=== PATIENT | male | born 1985 | race Caucasian/White ===

== ENCOUNTER 2022-01-10 23:03 | Emergency (ER) | payer OTHER, SELFPAY ==
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
[2022-01-10 23:40] VITALS: BP 136/84; BP 162/101; PULSE 71; PULSE 85; RESP 16; RESP 18; TEMP 36.2; O2SAT 100; BMI 22.2
--- OUTSIDE RECORDS SUMMARY | 2022-01-10 23:56 | XMS_ITS | Encounter Summary ---
:1985 Author Organization [facility] Address [address] [place] [address] Care Team Providers Name Role Phone Wilbur Eden MD Primary Care Provider Encounter Details Date Type Department Care Team Description 12/25/2007 [facility] Wilbur Eden Need for Prophylactic Health/Nurse Physicians MD [place] Vaccination with Visit [address] XXX RETIRED XXX Tetanus-Diphtheria [address]) (Primary Dx) [place], [place] [address] [address] [place], [place] [phone] Social History Tobacco Use Types Packs/Day Years Used Date Never Smoker Alcohol Use Standard Drinks/Week Comments No 0 (1 standard drink = 0.6 oz pure alcoho l) Sex Assigned at Date Recorded Not on file documented as of this encounter Nursing Notes 12/25/2007 11:30 AM CDT >> ÓSCAR Hilliard Dec 25, 2007 11:52 AM Vaccine information supplied. documented in this encounter Plan of Treatment Not on filedocumented as of this encounter Visit Diagnoses Diagnosis Need for prophylactic vaccination with t etanus-diphtheria (Td) - Primary documented in this encounter Care Teams Photoengraving Finisher Relationship Specialty Start Date End Date Wilbur Eden MD PCP - General 07/20/05 02/11/18 documented as of this encounter
--- OUTSIDE RECORDS SUMMARY | 2022-01-10 23:56 | XMS_ITS | Encounter Summary ---
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 documented as of this encounter Plan of Treatment Not on filedocumented as of this encounter Visit Diagnoses Not on filedocumented in this encounter Care Teams Regional Merchandising Manager Relationship Specialty Start Date End Date [facility] PCP - General 03/30/201999 [place] [address] documented as of this encounter
--- OUTSIDE RECORDS SUMMARY | 2022-01-10 23:56 | XMS_ITS | Encounter Summary ---
:1985 Author Organization [facility] Address [address] [place] [address] Care Team Providers Name Role Phone Wilbur Eden MD Primary Care Provider Reason for Visit Reason Comments Pharyngitis Encounter Details Date Type Department Care Team Description 07/20/2005 Office Visit [facility] Wilbur Eden ACUTE PHA RYNGITIS Physicians MD [place] (Primary Dx) [address] XXX RETIRED XXX [address] [place], [place] [address] [place], [place] [phone] (Wo rk) Social History Tobacco Use Types Packs/Day Years Used Date Never Smoker Alcohol Use Standard Drinks/Week Comments No 0 (1 standard drink = 0.6 oz pure alcoho l) Sex Assigned at Date Recorded Not on file documented as of this encounter Last Filed Vital Signs Vital Sign Reading Time Taken Comments Blood Pressure 110/68 07/20/2005 1:15 PM MASTER TAX ADVISOR Pulse 72 07/20/2005 1:15 PM MASTER TAX ADVISOR Temperature 36.8 ??C (98.3 ??F) 07/20/2005 1:15 PM MASTER TAX ADVISOR Respiratory Rate 12 07/20/2005 1:15 PM MASTER TAX ADVISOR Oxygen Saturation - - Inhaled Oxygen Concentration - - Weight 61.7 kg (136 lb) 07/20/2005 1:15 PM MASTER TAX ADVISOR Height 172.7 cm (5' 8) 07/20/2005 1:15 PM MASTER TAX ADVISOR Body Mass Index 20.68 07/20/2005 1:15 PM MASTER TAX ADVISOR documented in this encounter Progress Notes Wilbur Eden 07/20/2005 1:33 PM CST SUBJECTIVE: Abhijeet Moses is an 19 year old male who presents for evaluation and treatment of sore throat. Symptoms include congestion, sore throat, swollen glands, fever and cough. Onset 4 days, gradually worsening since that time. Known Strep exposure: none. No current outpatient prescriptions on file. No Known Allergies. History Substance Use Topics ??? Tobacco Use: Never ??? Alcohol Use: No OBJECTIVE: BP 110/68 Pulse 72 Temp (Src) 98.3 (Oral) Resp 12 Ht 5' 8 (1.73m) Wt 136 lbs (61.7kg) General appearance: healthy, alert and no distress Ears: R TM - normal: no effusions, no erythema, and normal landmarks, L TM - normal: no effusions, no erythema, and normal landmarks Nose: normal Oropharynx: mild erythema, exudates present and rapid strep done Neck: normal, supple and moderate anterior cervical adenopathy bilaterally Lungs: normal and clear to auscultation Heart: regular rate and rhythm and no murmurs, clicks, or gallops ASSESSMENT: Acute pharyngitis - r/o Strep RSS negative Dx: Non-strep pharyngitis Rx: 1) Symptomatic treatment with fluids, vaporizer, acetaminophen. 2) Recheck as needed for persistence, worsening, appearance of new symptoms. 3) Discussion about not using antibiotics with viral illness and about the overuse of antibiotics in this situation. It is likely that the cause of their symptoms are still viral at this time. Antibiotics are not absolutely necessary at this time. ER TAX ADVISOR documented in this encounter Nursing Notes 07/20/2005 1:15 PM CST >> HENNA HILL 07/20/2005 1:24 pm Patient complains of headache, sore throat, cough described as productive of clear and yellow sputum, chest congestion and fatigue for 3 days. Body mass index is 20.68 kg/(m^2). documented in this encounter Plan of Treatment Not on filedocumented as of this encounter Procedures Procedure Name Priority Date/Time Associated Diagnosis Comme nts HCL STREP A RAPID Routine 07/20/2005 1:32 PM Acute Pharyngitis Results for this MASTER TAX ADVISOR procedure are i n the results section. documented in this encounter Results STREP A RAPID (07/20/2005 1:32 PM MASTER TAX ADVISOR) P athologist Signature Rapid Strep A neg [facility] Screen Wilbur Eden MD LABORATORY Performing Organization Address City/State/ZIP Code Phon e Number [facility] documented in this encounter Visit Diagnoses Diagnosis Acute pharyngitis - Primary documented in this encounter Care Teams Registered Private Duty Nurse Relationship Specialty Start Date End Date Wilbur Eden MD PCP - General 07/20/05 02/11/18 documented as of this encounter
[2022-01-11] MEDS: ONDANSETRON 2 MG/ML inj 4 MG IVP (00:09)
[2022-01-11] MEDS: MORPHINE 4 MG/ML INJ IVP (00:09)
[2022-01-11] MEDS: 0.9 % SODIUM CHLORIDE 1000 ml 1,000 ML IV (00:09)
[2022-01-11 00:10] VITALS: BP 134/92; PULSE 70; RESP 16; O2SAT 99
[2022-01-11 00:20] VITALS: BP 134/91; PULSE 80; RESP 16; O2SAT 95
[2022-01-11 00:30] VITALS: BP 125/73; PULSE 73; RESP 16; O2SAT 98
[2022-01-11 00:40] VITALS: BP 148/105; PULSE 69; RESP 16; O2SAT 97
[2022-01-11 00:50] VITALS: BP 147/92; PULSE 66; RESP 16; O2SAT 99
[2022-01-11 01:05] LABS: Appearance Urine Clear (Clear); Bilirubin Urine Negative (Negative); Blood Urine Negative (Negative); Color Urine Yellow (Yellow); Glucose Urine Negative (Negative); Ketones Urine Negative (Negative); Leukocyte Esterase Urine Negative (Negative); Nitrite Urine Negative (Negative); Protein Urine Negative (Negative); Urobilinogen Urine 0.2 (0.2-1.0); pH Urine 6.5 (5.0-8.5)
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
== END 2022-01-11 01:55 | disposition home or self-care (01) ==
PROVIDERS: Emergency Provider Family Medicine; PCP Family Medicine
DX: S16.1XXA Strain of muscle, fascia and tendon at neck level, initial encounter (principal); V43.52XA Car driver injured in collision with other type car in traffic accident, initial encounter; M54.9 Dorsalgia, unspecified
CPT/HCPCS: 71260; 72125; 76705; 81003; 96374; 96375; 99283; 99291; J2270; J2405; J7030; Q9967

== ENCOUNTER 2023-02-24 12:26 | Outpatient (REF) | payer BC, SELFPAY ==
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
--- OUTSIDE RECORDS SUMMARY | 2023-02-24 12:34 | XMS_ITS | Continuity of Care Document ---
Author Name Unknown Organization [facility] Address [address] [place] [address] Phone Care Team Providers Care Parking Enforcement Manager Name Role Phone Jose Woods MD Unavailable Unavailable Allergies, Adverse Reactions, Alerts Substance Reaction Status Criticality ESCITALOPRAM OXALATE Active No Info rmation Medications Medication Instructions Dosage Effective Dates (start - stop) Status Comments LORAZEPAM (unknown strength) Not Available - Active CYCLOBENZAPRINE HCL (unknown strength) Not Available - Active Procedures Procedure Date Office/Outpatient Visit,New, Mod 2020 Advance Directives Directive Yes / No Effective Date File Name No Information Encounters Encounter Description Practice Location Reason(s) For Visit Diagnoses Date Provider Providers Copied on Encounter [facility], [address], [place], [place], [id number], [place] tel:[phone] [facility] No Information Chuck Garcia. [facility], [address] [place] [address], [facility] [address], [place], [place], [id number], [place]. tel:[phone] Office/Outpat ient Visit,[facility], [facility], [address], [place], [place], [id number], [place] tel:[phone] [facility] Spinal stenosis, cervical region Logan Hilton. [facility], [address], [place], [address], [place]. tel:[phone] Referring Provider: Brenton March, [facility] And [address], [address]. tel:[phone] Family History Family Member Type Diagnosis Age At Onset No Information Payers Payer name Insurance type Covered green party ID Sukumar bobo(s) [facility] [id number] Social History Type Description Quantity Date Captured Comments Sex Male Smoking Status No Information Chief Complaint And Reason For Visit No Information Reason For Referral Reason For Referral No Information History Of Present Illness Encounter Date Complaint History Of Prese nt Illness No Information Functional Status Date Functional Assessmen t No Information Instructions Date Instruction Additional Infor mation No Information Assessments Type Assessment Date No Information Patient Care Teams Name Effective Dates (start - stop) Status Members No Information
--- OUTSIDE RECORDS SUMMARY | 2023-02-24 12:34 | XMS_ITS | Continuity of Care Document ---
Author Name Unknown Organization [facility] Address [address] [place] [address] Phone Care Team Providers Care Rcp Name Role Phone [facility] Unavailable Unava ilable Procedures Procedure Date INTERLAMINAR CRV OR THRC INTERLAMINAR CRV OR THRC Advance Directives Directive Yes / No Effective Date File Name No Information Encounters Encounter Description Practice Location Reason(s) For Visit Diagnoses Date Provider Providers Copied on Encounter [facility], [address] [place] [address], [id number], [place] tel:[phone] [facility] No Information [facility]. [address] [place] [address], [id number], . tel:[phone] Referring Provider: Yasmani Barraza [address], [place], [address]. tel:[phone] Family History Family Member Type Diagnosis Age At Onset No Information Payers Payer name Insurance type Covered green party ID Authorselma bobo(s) [facility] [id number] Social History Type Description Quantity Date Captured [...]
[2023-02-24 13:04] LABS: Basophils Absolute Auto 0.06 K/uL (0.00-0.30); Eosinophils Percent Auto 3.4 % (0.0-7.0); Hematocrit 45.9 % (37.0-53.0); Immature Granulocytes Abs Auto 0.05 K/uL (0.00-0.30); Immature Granulocytes Pct Auto 0.9 %; Lymphocytes Absolute Auto 2.32 K/uL (0.90-2.90); Lymphocytes Percent Auto 39.8 % (20-44); Mean Corpuscular HGB Conc 35 gm/dL (32-36); Mean Corpuscular Hemoglobin 30 pg (26-34); Mean Corpuscular Volume 85 fL (80-100); Neutrophils Absolute Auto 2.85 K/uL (1.7-7.0); Neutrophils Percent Auto 48.9 % (42.0-72.0); Platelet Count* 372 K/uL (140-440); RDW Coefficient of Variation % 12.8 % (11.5-15.5); Red Blood Count 5.39 m/uL (4.30-5.90); White Blood Count* 5.83 K/uL (4.50-11.00)
[2023-02-24 13:12] LABS: Slide Review Reflex No
== END 2023-02-24 12:27 | disposition home or self-care (01) ==
LOC: NPINS 12:26
PROVIDERS: PCP Family Medicine; Visit Provider Anesthesiology
DX: Z01.812 Encounter for preprocedural laboratory examination (principal)
CPT/HCPCS: 85025

== ENCOUNTER 2023-05-11 10:14 | Outpatient (CLI) | payer BC, SELFPAY ==
--- OUTSIDE RECORDS SUMMARY | 2023-05-11 10:17 | XMS_ITS | Continuity of Care Document ---
Author Name Unknown Organization [facility] enter Address [address] [place] [address] Phone Care Team Providers Care Tracer Bullet Section Supervisor Name Role Phone [facility] Unavailable Unava ilable Procedures Procedure Date INTERLAMINAR CRV OR THRC INTERLAMINAR CRV OR THRC Advance Directives Directive Yes / No Effective Date File Name No Information Encounters Encounter Description Practice Location Reason(s) For Visit Diagnoses Date Provider Providers Copied on Encounter [facility], [address] [place] [address], [id number], [place] tel:[phone] [facility] No Information [facility]. [address] [place] [address], [id number], . tel:[phone] Referring Provider: Yasmani Barraza [address], [address]. tel:[phone] Family History Family Member Type Diagnosis Age At Onset No Information Payers Payer name Insurance type Covered constitution party ID Authorselma bobo(s) [facility] [id number] Social History Type Description Quantity Date Captured [...]
--- OUTSIDE RECORDS SUMMARY | 2023-05-11 10:17 | XMS_ITS | Continuity of Care Document ---
Author Name Unknown Organization [facility] Address [address] [place] [address] Phone Care Team Providers Care Anime Artist Name Role Phone Jose Woods MD Unavailable Unavailable Allergies, Adverse Reactions, Alerts Substance Reaction Status Criticality ESCITALOPRAM OXALATE Active No Info rmation Medications Medication Instructions Dosage Effective Dates (start - stop) Status Comments CYCLOBENZAPRINE HCL (unknown strength) Not Available - Active LORAZEPAM (unknown strength) Not Available - Active Procedures Procedure Date Office/Outpatient Visit,New, Mod 2020 Advance Directives Directive Yes / No Effective Date File Name No Information Encounters Encounter Description Practice Location Reason(s) For Visit Diagnoses Date Provider Providers Copied on Encounter [facility], [address], [place], [place], [id number], [place] tel:[phone] [facility] No Information Chuck Garcia. [facility] [place], [address] [place] [address], [facility] [address], [place], [place], [id number], [place]. tel:[phone] Office/Outpat ient Visit,[facility], [address], [place], [place], [id number], [place] tel:[phone] [facility] Spinal stenosis, cervical region Logan Hilton. [facility] [place], [address], [place], [address], [place]. tel:[phone] Referring Provider: Brenton March, [facility] And [address], [address]. tel:[phone] Family History Family Member Type Diagnosis Age At Onset No Information Payers Payer name Insurance type Covered republican ID Sukumar bobo(s) [facility] [id number] Social History Type Description Quantity Date Captured [...]
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
== END 2023-05-11 10:15 | disposition home or self-care (01) ==
PROVIDERS: PCP Family Medicine; Visit Provider Family Medicine
DX: Z00.00 Encounter for general adult medical examination without abnormal findings (principal); R79.89 Other specified abnormal findings of blood chemistry; Z13.6 Encounter for screening for cardiovascular disorders
CPT/HCPCS: 80048; 80061

== ENCOUNTER 2023-10-27 15:17 | Emergency (ER) | payer OTHER, SELFPAY ==
[2023-10-27 15:28] VITALS: BP 133/83; PULSE 87; RESP 18; TEMP 37.1; O2SAT 100; BMI 21.6
--- NOTE | 2023-10-27 15:53 | CRLHL7_ITS ---
For Patients: As a result of the Century Cures Act, medical imaging exams and procedure reports are released immediately into your electronic medical record. You may view this report before your referring provider. If you have questions, please contact your health care provider. Indication: Left lower quadrant pain Technique: CT abdomen and pelvis with intravenous contrast, 71 cc of Isovue [address] all [address] scans at this facility use dose modulation, iterative reconstruction, and/or weight-based dosing when appropriate to reduce radiation dose to as low as reasonably achievable. Comparison: None Findings: Lower chest is clear. 2 millimeter hypodensity within the hepatic dome is too small to characterize statistically a tiny cyst. The gallbladder, spleen, adrenal glands, pancreas and kidneys are normal. Few pelvic phleboliths are identified. Urinary bladder is grossly unremarkable. Prostate is normal in size. There are a few diverticula within the sigmoid colon where there is associated bowel wall thickening but no definite inflammatory stranding. There is no bowel obstruction. The appendix is not discretely visualized/there are no secondary signs of acute appendicitis. The abdominal aorta and its major vessels are patent and normal in caliber. There is no ascites, free air or lymphadenopathy. Soft tissues are unremarkable. Unilateral left L5-S1 spondylolysis is noted. Bones are otherwise unremarkable. Impression: Sigmoid colitis versus very early sigmoid diverticulitis. Please note that all CT scans at this facility use dose modulation, iterative reconstruction, and/or weight-based dosing when appropriate to reduce radiation dose to as low as reasonably achievable. Dictated by Bridger Noland MD @ 10/27/2023 5:27:27 PM (Electronically Signed)
--- NOTE | 2023-10-27 16:01 | ED.ABDPAIN ---
HPI - Abdominal Pain General Chief Complaint: Abdominal Pain Stated Complaint: Abdominal pain Time Seen by Provider: 10/27/23 15:45 History of Present Illness HPI narrative: This 37-year-old male comes in reporting left lower quadrant abdominal pain that is been somewhat intermittent and more mild over the past few months but now in the past 4 days it has become constant and more severe. He presented to clinic today and was instructed to come here for further evaluation and treatment. He has had his appendix removed. He does not report any nausea, vomiting, lightheadedness, shortness of breath, dysuria, or altered bowel function. There is no reported blood in the toilet from his stools. He did have subjective fever about 3 days ago with some generalized malaise that he attributed to an upper respiratory infection. Those symptoms have resolved. Related Data Home Medications ?Medication ?Instructions ?Recorded ?Confirmed ibuprofen 200 mg capsule 200 - 400 mg PO QDAY PRN 05/11/23 10/27/23 Previous Rx's ?Medication ?Instructions ?Recorded cyclobenzaprine 10 mg tablet 10 mg PO TID PRN muscle spasm #60 03/05/22 tabs lorazepam 1 mg tablet 1 mg PO BID PRN anxiety #30 tabs 08/01/23 prednisone 20 mg tablet 40 mg (2 x 20 mg) PO QDAY #10 tabs 10/10/23 ciprofloxacin HCl 500 mg tablet 500 mg PO BID 7 days #14 tabs 10/27/23 (Cipro) hydrocodone 5 mg-acetaminophen 325 1 tab PO Q4-6H PRN pain #15 tabs 10/27/23 mg tablet ketorolac 10 mg tablet 10 mg PO TID 5 days #15 tabs 10/27/23 metronidazole 500 mg tablet 500 mg PO BID 7 days #14 tabs 10/27/23 Allergies Allergy/AdvReac Type Severity Reaction Status Date / Time escitalopram Allergy Severe GI Verified 10/27/23 15:33 tolerance, sweating, hallucinations cat dander Allergy Intermediate Congested Verified 10/27/23 15:33 house dust Allergy Mild congestion Verified 10/27/23 15:33 Review of Systems Status of ROS Reports: 10 or more systems reviewed and unremarkable except as noted in History and below Narrative Constitutional: No fevers, no weight gain or loss. Eyes: No discharge. No vision changes. HENT: No congestion, no sore throat, no ear pain. Cardiovascular: No chest pain, no palpitations. Respiratory: No shortness of breath, no wheezes, no cough. Gastrointestinal: No vomiting, no diarrhea. Left lower quadrant abdominal pain primarily just superior to the inguinal canal region. Genitourinary: No dysuria, no hematuria. Musculoskeletal: Normal range of motion. Skin: No rashes, no pruritis. Neurological: No dizziness, weakness, sensory change, speech change. Endo/Heme/Allergies: No bruising or bleeding. No polydipsia. Pysch: no suicidality, no anxiety, no insomnia. All other systems reviewed and are negative. [facility] Medical History (Updated 10/27/23 @ 18:14 by Anjel Prather MD) Chronic neck pain ?M54.2 - Cervicalgia (ICD-10) ?G89.29 - Other chronic pain (ICD-10) Severe needle phobia ?F40.231 - Fear of injections and transfusions (ICD-10) Post herpetic neuralgia (03/14/11) ?B02.29 - Other postherpetic nervous system involvement (ICD-10) Generalized anxiety disorder ?F41.1 - Generalized anxiety disorder (ICD-10) Cervical radiculopathy ?M54.12 - Radiculopathy, cervical region (ICD-10) Allergic rhinitis ?J30.9 - Allergic rhinitis, unspecified (ICD-10) Abnormal liver function tests ?R79.89 - Other specified abnormal findings of blood chemistry (ICD-10) Surgical History (Updated 12/31/21 @ 12:07 by Brenton March MD) History of umbilical hernia repair ?Z98.890 - Other specified postprocedural states (ICD-10) ?Z87.19 - Personal history of other diseases of the digestive system (ICD-10) History of appendectomy ?Z90.49 - Acquired absence of other specified parts of digestive tract (ICD-10) Social History (Updated 12/31/21 @ 12:07 by Brenton March MD) Narrative: , 3 kids, [employer] Smoking Status: Never smoker Do you use any of these nicotine containing products: None Second hand tobacco smoke exposure: No How often do you have a drink containing alcohol: never AUDIT-C Alcohol total score: 0 Non-prescribed substance use: marijuana (any form) Non-prescribed substance use details: cannabis program for neck Little interest or pleasure in doing things: not at all Feeling down, depressed, or hopeless: several days Exam Narrative: Exam Narrative: Constitutional: Well-developed, well-nourished, no acute distress. HEENT: Normocephalic, atraumatic. Neck: Normal range of motion. Nontender. Supple. Heart: Regular. No murmurs. Normal rate. Intact distal pulses. Lungs: Clear to auscultation. No chest discomfort. No wheezes, rhonchi, or rales. Abdomen: Normal bowel sounds. Tenderness in the left lower quadrant close to the inguinal region just superior of the border between the left upper leg and the left lower abdomen. No rebound tenderness. Genitalia: Deferred. Back: No midline tenderness. Normal range of motion. Extremities: Normal range of motion. No injury. Skin: Intact. No rash. Warm. No erythema or pallor. Neurologic: No altered sensation. No weakness. Alert and oriented. Psychiatric: No suicidality. No anxiety or depression. No insomnia. Nursing notes and vitals signs are reviewed. Const: Vital Signs, click to edit/add: Vital Signs - 24 hr 10/27/23 15:28 10/27/23 16:37 Temperature 98.8 F Pulse Rate 66 Pulse Rate [Pulse Oximeter] 87 Respiratory Rate 18 18 Blood Pressure 133/83 Blood Pressure [Ri ght Upper Arm] 133/83 Pulse Oximetry 100 99 Oxygen Delivery Me thod Room Air Room Air Course Vital Signs Vital signs: Initial Vital Signs Temperature 98.8 F 10/27/23 15:28 Temperature Source Temporal Artery Scan 10/27/23 15:28 Pulse Rate 87 10/27/23 15:28 Respiratory Rate 18 10/27/23 15:28 Blood Pressure 133/83 10/27/23 15:28 Blood Pressure Mean 99 10/27/23 15:28 Blood Pressure Position Sitting 10/27/23 15:28 Pulse Oximetry 100 10/27/23 15:28 Oxygen Delivery Method Room Air 10/27/23 15:28 Vital Signs Temperature 98.8 F 10/27/23 15:28 Pulse Rate 87 10/27/23 15:28 Respiratory Rate 18 10/27/23 15:28 Blood Pressure 133/83 10/27/23 15:28 Pulse Oximetry 100 10/27/23 15:28 Oxygen Delivery Method Room Air 10/27/23 15:28 Temperature 98.8 F 10/27/23 15:28 Pulse Rate 66 10/27/23 16:37 Respiratory Rate 18 10/27/23 16:37 Blood Pressure 133/83 10/27/23 16:37 Pulse Oximetry 99 10/27/23 16:37 Oxygen Delivery Method Room Air 10/27/23 16:37 Medications Administered Medications: Discontinued Medications Generic Name Dose Route Start Last Admin Trade Name Eric PRN Reason Stop Dose Admin Ketorolac Tromethamine 30 mg 10/27/23 15:53 10/27/23 16:25 Ketorolac 30 Mg/Ml Inj IVP 10/27/23 15:54 30 mg ONCE ONE Administration MDM - Abdominal Pain MDM Narrative Medical decision making narrative: This patient comes in with left lower quadrant abdominal pain as described above. A CT scan with IV contrast is obtained and does show normal findings except for some beginning evidence of sigmoid diverticulitis. The patient's lab results all returned with normal findings. I did prescribe Cipro, Flagyl, Toradol, and some tablets of [place] to treat these symptoms. The patient understands signs and symptoms that would indicate a need for return and re-evaluation. Lab Data Labs: Lab Results 10/27/23 10/27/23 Range/Units 16:12 17:23 WBC 10.93 (4.50-11.00) K/uL RBC 4.94 (4.30-5.90) m/uL Hgb 14.1 (13.5-17.5) gm/dL Hct 42.5 (37.0-53.0) % MCV 86 (80-100) fL MCH 29 (26-34) pg MCHC 33 (32-36) gm/dL RDW Coeff of Poly 13.1 (11.5-15.5) % Plt Count 302 (140-440) K/uL Neut % (Auto) 67.6 (42.0-72.0) % Lymph % (Auto) 26.3 (20-44) % [place] % (Auto) 5.0 (0.0-11.0) % Eos % (Auto) 0.5 (0.0-7.0) % Baso % (Auto) 0.4 (0.0-3.0) % Neut # (Auto) 7.39 H (1.7-7.0) K/uL Lymph # (Auto) 2.87 (0.90-2.90) K/uL [place] # (Auto) 0.50 (0.00-0.90) K/UL Eos # (Auto) 0.06 (0.00-0.50) K/uL Baso # (Auto) 0.04 (0.00-0.30) K/uL Abs Immat Gran (auto) 0.02 (0.00-0.30) K/uL Imm/Tot Granulo (auto) 0.2 % Sodium 141 (135-149) mmol/L Potassium 3.8 (3.6-5.1) mmol/L Chloride 106 (96-114) mmol/L Carbon Dioxide 27 (20-32) mmol/L Anion Gap 8 (7-15) mEq/L BUN 17 (5-24) mg/dL Creatinine 0.8 (0.5-1.5) mg/dL Estimated Creat Clear 117.27 Estimated GFR 116 ml/min Glucose 104 (60-115) mg/dL Calcium 9.5 (8.4-10.6) mg/dL Urine Color Yellow (Yellow) Urine Appearance Clear (Clear) Urine pH 7.0 (5.0-8.5) Ur Specific [place] 1.010 (1.000-1.030) Urine Protein Negative (Negative) Urine Glucose (UA) Negative (Negative) Urine Ketones Negative (Negative) Urine Blood Negative (Negative) Urine Nitrite Negative (Negative) Urine Bilirubin Negative (Negative) Urine Urobilinogen 0.2 (0.2-1.0) Ur Leukocyte Esterase Negative (Negative) Urine RBC 0-2 (0-2) Urine WBC 0-2 (0-5) Ur Squamous Epith Cells None (None-Few) Urine Bacteria None (None) Imaging Data CT scan - abdomen: Radiologist's impression: Sigmoid colitis versus very early sigmoid diverticulitis. Discharge Plan Discharge Clinical Impression: Diverticulitis Patient Disposition: Home, Self-Care Condition: Stable Additional Instructions: Take medication as prescribed. Follow up with MD or return if worsening. Prescriptions: New ciprofloxacin HCl [Cipro] 500 mg tablet 500 mg PO BID 7 Days Qty: 14 0RF hydrocodone-acetaminophen 5-325 mg tablet 1 tab PO Q4-6H PRN (Reason: pain) Qty: 15 0RF metronidazole 500 mg tablet 500 mg PO BID 7 Days Qty: 14 0RF ketorolac 10 mg tablet 10 mg PO TID 5 Days Qty: 15 0RF No Action ibuprofen 200 mg capsule 200 - 400 mg PO QDAY PRN prednisone 20 mg tablet 40 mg PO QDAY Qty: 10 0RF cyclobenzaprine 10 mg tablet 10 mg PO TID PRN (Reason: muscle spasm) Qty: 60 2RF lorazepam 1 mg tablet 1 mg PO BID PRN (Reason: anxiety) Qty: 30 2RF Follow Up/Referrals: Brenton March MD [Primary Care Provider] - Stand Alone Forms: MyHealth Info Instructions
[2023-10-27 16:18] LABS: Basophils Absolute Auto 0.04 K/uL (0.00-0.30); Basophils Percent Auto 0.4 % (0.0-3.0); Eosinophils Absolute Auto 0.06 K/uL (0.00-0.50); Eosinophils Percent Auto 0.5 % (0.0-7.0); Hematocrit 42.5 % (37.0-53.0); Hemoglobin* 14.1 gm/dL (13.5-17.5); Immature Granulocytes Abs Auto 0.02 K/uL (0.00-0.30); Immature Granulocytes Pct Auto 0.2 %; Lymphocytes Absolute Auto 2.87 K/uL (0.90-2.90); Lymphocytes Percent Auto 26.3 % (20-44); Mean Corpuscular HGB Conc 33 gm/dL (32-36); Mean Corpuscular Hemoglobin 29 pg (26-34); Mean Corpuscular Volume 86 fL (80-100); Neutrophils Absolute Auto 7.39 K/uL (1.7-7.0); Neutrophils Percent Auto 67.6 % (42.0-72.0); Platelet Count* 302 K/uL (140-440); RDW Coefficient of Variation % 13.1 % (11.5-15.5); Red Blood Count 4.94 m/uL (4.30-5.90); White Blood Count* 10.93 K/uL (4.50-11.00)
--- OUTSIDE RECORDS SUMMARY | 2023-10-27 16:24 | XMS_ITS | Continuity of Care Document ---
Author Organization [facility] enter Address [address] [place] [phone] Phone Care Team Providers Care Gas Station Operator Name Role Phone [facility] Unavailable Unava ilable Procedures Procedure Date INTERLAMINAR CRV OR THRC INTERLAMINAR CRV OR THRC Advance Directives Directive Yes / No Effective Date File Name No Information Encounters Encounter Description Practice Location Reason(s) For Visit Diagnoses Date Provider Providers Copied on Encounter [facility], [address] [place] [address], [id number], tel:[phone] [facility] No Information [facility]. [address] [place] [address], [id number], . tel:[phone] Referring Provider: Yasmani Barraza [address], [place], [address]. tel:[phone] Family History Family Member Type Diagnosis Age At Onset No Information Payers Payer name Insurance type Covered green party ID Sukumar bobo(s) [facility] [id number] Social History Type Description Quantity Date Captured [...]
--- OUTSIDE RECORDS SUMMARY | 2023-10-27 16:24 | XMS_ITS | Clinical Summary ---
Author Organization [facility] Address [address], [place] [address] Care Team Providers Care Digital Performance Analyst Name Role Phone Unassigned, Provider Primary Care Provider Unava ilable Source Comments You are receiving this document as you are listed as the primary care provider,follow-up provider, or the patient has been referred to you for consultation.This is in compliance with the Medicare and[facility] Cent[facility]aid EHR Incentive Program,which states Providers who transition their patient to another setting of careor provider of care or refers their patient to another provider of care shouldprovide summary care record for each transition of care or referral. [facility] Allergies No known active allergies Medications Medication Sig Dispensed Refills Start Date End Date Status unknown medication Indications: PN: 07/05/2005 Active Active Problems Problem Noted Date Diagnosed Date Chronic cervical radiculopathy 01/19/2022 Chronic bilateral low back pain without sciatica 01/19/2022 Other and unspecified alcoho l dependence, episodic drinking behavior 09/06/2004 Overview: chem dep treatment 3 times after truancy and 2 DUI's. ; chemical dependency, alcohol Immunizations Name Administration Dates Next Due Td 01/05/1999 Family History Medical History Relation Name Comments Migraines Father Cancer, Breast Negative Family History Cancer, Colon Negative Family History Cancer, Prostate Negative Family History Diabetes, Type II Negative Family History Relation Name Status Comments Father Alive Mother Alive Sister 1 Alive Sister 2 Alive Social History Tobacco Use Types Packs/Day Years Used Date Smoking Tobacco: Former Cigarettes 1 2 0 09/04/2002 - 09/04/2004 Alcohol Use Standard Drinks/Week Comments Yes 0 (1 standard drink = 0.6 oz pur e alcohol) Sex and Gender Information Value Date Recorded Sex Assigned at Not on file Gender Identity Not on file Sexual Orientation Not on file Last Filed Vital Signs Vital Sign Reading Time Taken Comments Blood Pressure 142/78 12/07/2012 2:30 PM CDT Pulse 49 12/07/2012 2:30 PM CDT Temperature 36.7 ??C (98.1 ??F) 07/05/2005 2:24 PM CS T C: 36.7 C Respiratory Rate 16 06/22/2005 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 Oxygen Saturation - - Inhaled Oxygen Concentration - - Weight 74.8 kg (165 lb) 12/07/2012 2:30 PM CDT Height 175.3 cm (5' 9) 12/07/2012 2:30 PM CDT Body Mass Index 24.37 12/07/2012 2:30 PM CDT Plan of Treatment Health Maintenance Due Date Last Done Comments Hep C Screening (Preventive Services) 1984 DTaP/Tdap/Td (2 - Tdap) 01/06/1999 01/05/1999 HepB (1) 11/21/2003 Adult Preventive Visit 09/06/2006 5, 10/18/2001, 07/13/2000 Cholesterol 11/21/2019 COVID-19 Vaccine (1 - 2022-2 4 season) 2023 Influenza (Season Ended) 2024 Zoster/Shingles (1 of 2) 2034 HIV Screening (Preventive Services) Completed 01/18/2002 HPV Vaccine Aged Out No longer eligi ble based on patient's age to complete this topic HepA Aged Out No longer eligi ble based on patient's age to complete this topic Hib Aged Out No longer eligi ble based on patient's age to complete this topic IPV (Polio) Aged Out No longer eligi ble based on patient's age to complete this topic MCV4 Aged Out No longer eligi ble based on patient's age to complete this topic Pneumococcal Aged Out No longer eligi ble based on patient's age to complete this topic Procedures Procedure Name Priority Date/Time Associated Diagnosis Comments HIV ANTIBODY Routine 01/18/2002 3:43 PM CDT from Last 3 Months or Most Recently Relevant to Health Maintenance Results * HIV 1/2 ANTIBODY (01/18/2002 3:43 PM CDT) HIV 1/2 Antibody Non-Reacti ve [facility] 01/18/2002 3:43 PM CDT 01/18/2002 3:44 PM CDT Luigi Mo MD LAB_[facility] [address] [id number] from Last 3 Months or Most Recently Relevant to Health Maintenance Advance Directives * No Code Status (Latest Code Status on File) Date Activated Date Inactivated Comments 09/06/2004 11:51 AM 09/06/2004 11:51 AM Care Teams Digital Performance Analyst Relationship Specialty Start Date End Date Unassigned, Provider [address] [place] [id number] PCP - General 05/19/05
--- OUTSIDE RECORDS SUMMARY | 2023-10-27 16:24 | XMS_ITS | Continuity of Care Document ---
Author Organization [facility] Address [address] [place] [address] Phone Care Team Providers Care Senior Administrator Support Name Role Phone Jose Woods MD Unavailable [...] on Encounter [facility], [address], [place], [place], [id number], [place] tel:[phone] [facility] No Information Chuck Garcia. [facility], [address] [place] [address], [facility] [address], [place], [place], [id number], [place]. tel:[phone] Office/Outpat ient Visit,[facility], [facility], [address], [place], [place], [id number], [place] tel:[phone] [facility] Spinal stenosis, cervical region Logan Hilton. [facility], [address], [place], [address], [place]. tel:[phone] Referring Provider: Brenton March, [facility] And [address], [address]. tel:[phone] Family History Family Member Type Diagnosis Age At Onset No Information Payers Payer name Insurance type Covered alliance party ID Sukumar bobo(s) [facility] [id number] Social History Type Description Quantity Date Captured [...]
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
--- OUTSIDE RECORDS SUMMARY | 2023-10-27 16:24 | XMS_ITS | Encounter Summary ---
Author Organization [facility] Address [address] [place] [address] Care Team Providers Care Recreation Professor Name Role Phone Unassigned, Provider Primary Care Provider Unava ilable Encounter Details Date Type Department Care Team (Latest Contact Info) Description 2012 Correspondence [facility] [address] [place], [place] [id number] RESPIRATOR CERT QUESTIONNAIRE Social History Tobacco Use Types Packs/Day Years Used Date Smoking Tobacco: Former Cigarettes 1 2 0 09/04/2002 - 09/04/2004 Alcohol Use Standard Drinks/Week Comments Yes 0 (1 standard drink = 0.6 oz pur e alcohol) Sex and Gender Information Value Date Recorded Sex Assigned at Not on file Gender Identity Not on file Sexual Orientation Not on file documented as of this encounter Progress Notes * NURSE/ASSIST 1 [facility] - 2012 12:00 AM CDT documented in this encounter Plan of Treatment Not on file documented as of this encounter Visit Diagnoses Not on filedocumented in this encounter Care Teams Recreation Professor Relationship Specialty Start Date End Date Unassigned, Provider [address] [place] [address] PCP - General 05/19/05 documented as of this encounter
--- OUTSIDE RECORDS SUMMARY | 2023-10-27 16:24 | XMS_ITS | Encounter Summary ---
Author Organization [facility] Address [address] [place] [address] Care Team Providers Care Can Tender Name Role Phone Unassigned, Provider Primary Care Provider Unava ilable Encounter Details Date Type Department Care Team (Latest Contact Info) Description 09/17/1998 Orders Only Buddy Guzman MD [address] [place], [place] [id number] Social History Tobacco Use Types Packs/Day Years Used Date Smoking Tobacco: Never Assessed Sex and Gender Information Value Date Recorded Sex Assigned at Not on file Gender Identity Not on file Sexual Orientation Not on file documented as of this encounter Plan of Treatment Not on file documented as of this encounter Visit Diagnoses Not on filedocumented in this encounter Care Teams Can Tender Relationship Specialty Start Date End Date Unassigned, Provider [address] [place] [address] PCP - General 05/19/05 documented as of this encounter
--- OUTSIDE RECORDS SUMMARY | 2023-10-27 16:24 | XMS_ITS | Encounter Summary ---
Author Organization [facility] Address [address] [place] [address] Care Team Providers Care Rn Diabetes Name Role Phone Unassigned, Provider Primary Care Provider Unava ilable Encounter Details Date Type Department Care Team (Latest Contact Info) Description 08/16/1999 Orders Only Luigi Mo MD [address] [place] [address] Social History Tobacco Use Types Packs/Day Years Used Date Smoking Tobacco: Never Assessed Sex and Gender Information Value Date Recorded Sex Assigned at Not on file Gender Identity Not on file Sexual Orientation Not on file documented as of this encounter Plan of Treatment Not on file documented as of this encounter Visit Diagnoses Not on filedocumented in this encounter Care Teams Rn Diabetes Relationship Specialty Start Date End Date Unassigned, Provider [address] [place] [address] PCP - General 05/19/05 documented as of this encounter
--- OUTSIDE RECORDS SUMMARY | 2023-10-27 16:24 | XMS_ITS | Encounter Summary ---
Author Organization [facility] Address [address] [place] [address] Care Team Providers Care Dining Car Waiter/Waitress Name Role Phone Unassigned, Provider Primary Care Provider Unava ilable Encounter Details Date Type Department Care Team (Latest Contact Info) Description 10/16/1998 Orders Only Luigi Mo MD [address] [place] [address] Social History Tobacco Use Types [...] on filedocumented in this encounter Care Teams Dining Car Waiter/Waitress Relationship Specialty Start Date End Date Unassigned, Provider [address] [place] [address] PCP - General 05/19/05 documented as of this encounter
--- OUTSIDE RECORDS SUMMARY | 2023-10-27 16:24 | XMS_ITS | Encounter Summary ---
Author Organization [facility] Address [address] [place] [address] Care Team Providers Care Conveyor Loader Name Role Phone Unassigned, Provider Primary Care Provider Unava ilable Encounter Details Date Type Department Care Team (Latest Contact Info) Description 09/04/1997 Office Visit Estevan Guzman MD [facility] [address] [place] [address] Social History Tobacco Use Types Packs/Day Years Used Date Smoking Tobacco: Never Assessed Sex and Gender Information Value Date Recorded Sex Assigned at Not on file Gender Identity Not on file Sexual Orientation Not on file documented as of this encounter Progress Notes * Estevan Guzman - 09/04/1997 12:00 AM CDTS: COUGH, FEVER. Abhijeet has been out of school for quite a while. He has been coughing for a week. He has had fever, it is worse at night. He has a rash now. He has had decreased appetite. He coughs and vomits up some phlegm. He has been using Benadryl for the itch and cough syrup. O: WEIGHT: 74.5 lbs. TEMP: 101.1. HEENT: normal. NECK: normal. CHEST: rales and rhonchi bilaterally. Has an erythema multiforme rash on the arms. ABDOMEN: normal. A: Mycoplasmal pneumonia. P: Try to get by without the Benadryl if possible as it is going to thicken the mucus. Use Sudafed, use Delsym if needed at night. Increase liquids, expectorate phlegm. Zithromax, 2 tablets now and then 1 daily for 4 days. Come back in about 2 weeks or prn. Dress cool so that his skin isn't too warm which will bring out more rash. IN SUMMARY: Mycoplasmal pneumonia. cc: documented in this encounter Plan of Treatment Not on file documented as of this encounter Visit Diagnoses Not on filedocumented in this encounter Care Teams Conveyor Loader Relationship Specialty Start Date End Date Unassigned, Provider [address] [place] [address] PCP - General 05/19/05 documented as of this encounter
--- OUTSIDE RECORDS SUMMARY | 2023-10-27 16:24 | XMS_ITS | Encounter Summary ---
Author Organization [facility] Address [address] [place] [address] Care Team Providers Care Track Subway Repair Supervisor Name Role Phone Unassigned, Provider Primary Care Provider Unava ilable Encounter Details Date Type Department Care Team ([facility] st Contact Info) Description 12/07/2012 Correspondence [facility] [address] [place] [address] RESP EXAM SUMMARY Social History Tobacco Use Types Packs/Day Years [...] this encounter Progress Notes * NURSE/ASSIST 1 [facility] - 12/07/2012 12:00 AM CDT documented in this encounter Plan of Treatment Not on file documented as of this encounter Visit Diagnoses Not on filedocumented in this encounter Care Teams Track Subway Repair Supervisor Relationship Specialty Start Date End Date Unassigned, Provider [address] [place] [address] PCP - General 05/19/05 documented as of this encounter
--- OUTSIDE RECORDS SUMMARY | 2023-10-27 16:24 | XMS_ITS | Encounter Summary ---
Author Organization [facility] Address [address] [place] [address] Care Team Providers Care Refrigerator Assembler Name Role Phone Unassigned, Provider Primary Care Provider Unava ilable Encounter Details Date Type Department Care Team ([facility] st Contact Info) Description 09/03/2001 Office Visit [facility] [address] [place] [address] Luigi Mo MD [address] [place] [id number] Social History Tobacco Use Types Packs/Day Years Used Date Smoking Tobacco: Never Assessed Sex and Gender Information Value Date Recorded Sex Assigned at Not on file Gender Identity Not on file Sexual Orientation Not on file documented as of this encounter Progress Notes * Luigi Mo - 09/03/2001 12:00 AM CDTS: Patient not seen today. Spoke with Abhijeet's father. 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 The police came to the house when Abhijeet was totally intoxicated and arrested him. He now has a social media marketing analyst, Dianelys Vital, ([facility]). Abhijeet is scheduled for a drug screen on September 12, but in fact he has continued to use drugs and defies his parents on a daily basis. He goes out the window and spends his paycheck from [facility] [employer] on drugs regularly. He has quit high school and he is enrolled in [employer]. The possibility of detox has been discussed. A: Multidrug use and school failure. P: I told Abhijeet's father that I would contact the social media marketing analyst to see what programs are available. I recommended that the father contact [facility] for chemical health treatment. I also recommended the parents take him to detox in [place] for 72 hours and then admit him to some type of program. I will attempt to find program information on a 3-week [facility] experience program in [place] or [place] and [place] where [place] people with drug problems have attended with success. IN SUMMARY: MULTIDRUG USE AND SCHOOL FAILURE cc: documented in this encounter Plan of Treatment Not on file documented as of this encounter Visit Diagnoses Not on filedocumented in this encounter Care Teams Refrigerator Assembler Relationship Specialty Start Date End Date Unassigned, Provider [address] [place] [address] PCP - General 05/19/05 documented as of this encounter
--- OUTSIDE RECORDS SUMMARY | 2023-10-27 16:24 | XMS_ITS | Encounter Summary ---
Author Organization [facility] Address [address] [place] [address] Care Team Providers Care Automotive Customer Experience Advisor Name Role Phone Unassigned, Provider Primary Care Provider Unava ilable Encounter Details Date Type Department Care Team (Latest Contact Info) Description 12/14/1999 Orders Only Estevan Guzman MD [facility] [address] [place] [address] Social History Tobacco Use Types Packs/Day Years Used Date Smoking Tobacco: Never Assessed Sex and Gender Information Value Date Recorded Sex Assigned at Not on file Gender Identity Not on file Sexual Orientation Not on file documented as of this encounter Plan of Treatment Not on file documented as of this encounter Visit Diagnoses Not on filedocumented in this encounter Care Teams Automotive Customer Experience Advisor Relationship Specialty Start Date End Date Unassigned, Provider [address] [place] [address] PCP - General 05/19/05 documented as of this encounter
--- OUTSIDE RECORDS SUMMARY | 2023-10-27 16:24 | XMS_ITS | Encounter Summary ---
Author Organization [facility] Address [address] [place] [address] Care Team Providers Care Master Mechanic Name Role Phone Unassigned, Provider Primary Care Provider Unava ilable Encounter Details Date Type Department Care Team (Latest Contact Info) Description 11/04/1997 Orders Only Estevan Guzman MD [facility] [address] [place] [address] Social History Tobacco Use Types Packs/Day Years Used Date Smoking Tobacco: Never Assessed Sex and Gender Information Value Date Recorded Sex Assigned at Not on file Gender Identity Not on file Sexual Orientation Not on file documented as of this encounter Plan of Treatment Not on file documented as of this encounter Visit Diagnoses Not on filedocumented in this encounter Care Teams Master Mechanic Relationship Specialty Start Date End Date Unassigned, Provider [address] [place] [address] PCP - General 05/19/05 documented as of this encounter
--- OUTSIDE RECORDS SUMMARY | 2023-10-27 16:24 | XMS_ITS | Encounter Summary ---
Author Organization [facility] Address [address] [place] [address] Care Team Providers Care Floorman Name Role Phone Unassigned, Provider Primary Care Provider Unava ilable Encounter Details Date Type Department Care Team (Latest Contact Info) Description 09/04/1997 Orders Only Estevan Guzman MD [facility] [address] [place] [address] Social History Tobacco Use Types Packs/Day Years Used Date Smoking Tobacco: Never Assessed Sex and Gender Information Value Date Recorded Sex Assigned at Not on file Gender Identity Not on file Sexual Orientation Not on file documented as of this encounter Plan of Treatment Not on file documented as of this encounter Visit Diagnoses Not on filedocumented in this encounter Care Teams Floorman Relationship Specialty Start Date End Date Unassigned, Provider [address] [place] [address] PCP - General 05/19/05 documented as of this encounter
[2023-10-27] MEDS: KETOROLAC 30 MG/ML inj IVP (16:25)
--- OUTSIDE RECORDS SUMMARY | 2023-10-27 16:25 | XMS_ITS | Clinical Summary ---
Author Organization [facility] Address [address] [place] [address] Care Team Providers Care Shingle Weaver Name Role Phone [facility], [facility] Primary Care Provider Dm Cabrales MD Unavailable [phone] Allergies Active Allergy Reactions Criticality Noted Date Comments Cat Hair Extract Other (See Comments) Low Dust Mites Other (See Comments) Low 12/31/2021 Serotonin Reuptake Inhibitors (Ssris) Dizziness,Nausea,Oth er (See Comments),Visual Disturbance High 01/10/2022 Other reaction(s): GI tolerance, sweating, hallucinations Medications Medication Sig Dispensed Refills Start Date End Date Status LORazepam (ATIVAN) 1 MG tablet 07/01/2022 Active cyclobenzaprine (FLEXERIL) 10 MG tablet 06/07/2022 Active LORazepam (ATIVAN) 1 MG tablet Active Active Problems Problem Noted Date Diagnosed Date NO ACTIVE PROBLEMS 07/20/2005 Immunizations Name Administration Dates Next Due TDAP Vaccine (Adacel) 12/25/2007 Family History Medical History Relation Comments C.A.D. No family hx of Cancer - colorectal No family hx of Diabetes No family hx of Prostate Cancer No family hx of Relation Status Comments Father Alive Mother Alive Sister 1 Alive Sister 2 Alive Social History Tobacco Use Types Packs/Day Years Used Date Smoking Tobacco: Never Alcohol Use Standard Drinks/Week Comments No 0 (1 standard drink = 0.6 oz pur e alcohol) PHQ-2 Answer Date Recorded PHQ-2 Score 0 09/05/2022 Adolescent Education Answer Date Record ed Getting School Help Needed Not on file 02/19 Sex and Gender Information Value Date Recorded Sex Assigned at Male 09/04/2022 3:59 PM CDT Gender Identity Male 09/04/2022 3:59 PM CDT Sexual Orientation Straight 09/04/2022 3: 59 PM CDT Last Filed Vital Signs Vital Sign Reading Time Taken Comments Blood Pressure 128/88 09/05/2022 2:52 PM CDT Pulse 80 09/05/2022 2:52 PM CDT Temperature 36.3 ??C (97.3 ??F) 03/30/2020 3:31 PM CS T Respiratory Rate 16 03/30/2020 3:31 PM DEFLASH AND WASH OPERATOR Oxygen Saturation 98% 09/05/2022 2:52 PM CDT Inhaled Oxygen Concentration - - Weight 68 kg (150 lb) 03/30/2020 3:31 PM DEFLASH AND WASH OPERATOR Height 172.7 cm (5' 8) 07/20/2005 1:15 PM DEFLASH AND WASH OPERATOR Body Mass Index - - Plan of Treatment Health Maintenance Due Date Last Done Comments ADVANCE CARE PLANNING 1985 ANNUAL REVIEW OF HM ORDERS 1985 HIV SCREENING 11/21/1999 HEPATITIS C SCREENING 2002 HEPATITIS B IMMUNIZATION (1 of 3 - 19+ 3-dose series) 11/21/2003 YEARLY PREVENTIVE VISIT 09/06/2005 09/07/19, 10/18/2001, 07/13/2000 COVID-19 Vaccine ( season) 2023 08/30/2022, 05/07/2021, 09/22/2020, Additional history exists GLUCOSE 03/30/2023 03/30/2020 PHQ-2 (once per calendar year) 2023 09/05/2022 INFLUENZA VACCINE (Season Ended) 2024 DTAP/TDAP/TD IMMUNIZATION (5 - Td or Tdap) 12/05/2026 12/05/2016, 12/25/2007, 01/05/1999, Additional history exists HPV IMMUNIZATION Aged Out No longer e ligible based on patient's age to complete this topic IPV IMMUNIZATION Aged Out No longer e ligible based on patient's age to complete this topic MENINGITIS IMMUNIZATION Aged Out No l onger eligible based on patient's age to complete this topic Pneumococcal Vaccine: Pediatrics (0 to 5 Years) and At-Risk Patients (6 to 64 Years) Aged Out No longer eligible based on patient's age to complete this topic RSV MONOCLONAL ANTIBODY Aged Out No l onger eligible based on patient's age to complete this topic Procedures Procedure Name Priority Date/Time Associated Diagnosis Comments COMPREHENSIVE METABOLIC PANEL STAT 03/30/2020 3:36 PM DEFLASH AND WASH OPERATOR from Last 3 Months or Most Recently Relevant to Health Maintenance Results * (ABNORMAL) Comprehensive metabolic panel (03/30/2020 3:36 PM DEFLASH AND WASH OPERATOR) Sodium 137 133 - 144 mmol/L 03/30/2020 5:08 PM [facility] Potassium 3.5 3.4 - 5.3 mmol/L 03/30/2020 5:08 PM [facility] Chloride 103 94 - 109 mmol/L 03/30/2020 5:08 PM [facility] Carbon Dioxide 16(L) 20 - 32 mmol/L 03/30/2020 5:16 PM [facility] Anion Gap 18(H) 3 - 14 mmol/L 03/30/2020 5:16 PM [facility] Glucose 226(H) 70 - 99 mg/dL 03/30/2020 5:16 PM [facility] Urea Nitrogen 12 7 - 30 mg/dL 03/30/2020 5:16 PM [facility] Creatinine 0.80 0.66 - 1.25 mg/dL 03/30/2020 5:16 PM [facility] GFR Estimate >90 >60 mL/min/{1. 73_m2} 03/30/2020 5:16 PM [facility] Comment: Non GFR Calc Starting 05/15/2018, serum creatinine based estimated GFR (eGFR) will be calculated using the Chronic Kidney Disease Epidemiology Collaboration (CKD-EPI) equation. GFR Estimate If Black >90 >60 mL/min/{1. 73_m2} 03/30/2020 5:16 PM [facility] Comment: GFR Calc Starting 05/15/2018, serum creatinine based estimated GFR (eGFR) will be calculated using the Chronic Kidney Disease Epidemiology Collaboration (CKD-EPI) equation. Calcium 9.1 8.5 - 10.1 mg/dL 03/30/2020 5:16 PM [facility] Bilirubin Total 0.5 0.2 - 1.3 mg/dL 03/30/2020 5:18 PM [facility] Albumin 4.3 3.4 - 5.0 g/dL 03/30/2020 5:18 PM [facility] Protein Total 8.2 6.8 - 8.8 g/dL 03/30/2020 5:18 PM [facility] Alkaline Phosphatase 79 40 - 150 U/L 03/30/2020 5:18 PM [facility] ALT 357(H) 0 - 70 U/L 03/30/2020 5:18 PM [facility] AST 134(H) 0 - 45 U/L 03/30/2020 5:18 PM [facility] Blood specimen (specimen) 03/30/2020 3:36 PM DEFLASH AND WASH OPERATOR 03/30/2020 4:40 PM DEFLASH AND WASH OPERATOR Laverne Gross PA-C LAB - BLOOD O RDERABLES [facility] [address] [place] [address], [facility] [phone] from Last 3 Months or Most Recently Relevant to Health Maintenance Care Teams Shingle Weaver Relationship Specialty Start Date End Date Clinic, [facility] [address] [place] [address] PCP - General 03/30/20 [place] [id number] [address] [address] [place] [address] Assigned Neuroscience Provider 09/10/22
--- OUTSIDE RECORDS SUMMARY | 2023-10-27 16:25 | XMS_ITS | Referral Summary ---
Author Organization [facility] Address [address] [place] [address] Care Team Providers Care Window Installation Subcontractor Name Role Phone Clinic, [facility] Primary Care Provider Dm Cabrales MD Unavailable [phone] Allergies Active Allergy Reactions Criticality Noted Date [...] Dates Next Due TDAP Vaccine (Adacel) 12/25/2007 Social History Tobacco Use Types Packs/Day Years [...] T Respiratory Rate 16 03/30/2020 3:31 PM ASSET MANAGEMENT LEAD Oxygen Saturation 98% 09/05/2022 2:52 PM CDT Inhaled Oxygen Concentration - - Weight 68 kg (150 lb) 03/30/2020 3:31 PM ASSET MANAGEMENT LEAD Height 172.7 cm (5' 8) 07/20/2005 1:15 PM ASSET MANAGEMENT LEAD Body Mass Index - - Plan of Treatment Not on file Procedures Procedure Name Priority Date/Time Associated Diagnosis Comments COMPREHENSIVE METABOLIC PANEL STAT 03/30/2020 3:36 PM ASSET MANAGEMENT LEAD from Last 3 Months or Most Recently Relevant to Health Maintenance Results * (ABNORMAL) Comprehensive metabolic panel (03/30/2020 3:36 PM ASSET MANAGEMENT LEAD) Sodium 137 133 - 144 mmol/L 03/30/2020 5:08 PM [facility] Potassium 3.5 3.4 - 5.3 mmol/L 03/30/2020 5:08 PM [facility] Chloride 103 94 - 109 mmol/L 03/30/2020 5:08 PM [facility] Carbon Dioxide 16(L) 20 - 32 mmol/L 03/30/2020 5:16 PM [facility] Anion Gap 18(H) 3 - 14 mmol/L 03/30/2020 5:16 PM [facility] Glucose 226(H) 70 - 99 mg/dL 03/30/2020 5:16 PM [facility] Urea Nitrogen 12 7 - 30 mg/dL 03/30/2020 5:16 PM [facility] Creatinine 0.80 0.66 - 1.25 mg/dL 03/30/2020 5:16 PM [facility] GFR Estimate >90 >60 mL/min/{1. 73_m2} 03/30/2020 5:16 PM [facility] Comment: Non GFR Calc Starting 05/15/2018, serum creatinine based estimated GFR (eGFR) will be calculated using the Chronic Kidney Disease Epidemiology Collaboration (CKD-EPI) equation. GFR Estimate If Black >90 >60 mL/min/{1. 73_m2} 03/30/2020 5:16 PM [facility] Comment: GFR Calc Starting 05/15/2018, serum creatinine based estimated GFR (eGFR) will be calculated using the Chronic Kidney Disease Epidemiology Collaboration (CKD-EPI) equation. Calcium 9.1 8.5 - 10.1 mg/dL 03/30/2020 5:16 PM [facility] Bilirubin Total 0.5 0.2 - 1.3 mg/dL 03/30/2020 5:18 PM [facility] Albumin 4.3 3.4 - 5.0 g/dL 03/30/2020 5:18 PM [facility] Protein Total 8.2 6.8 - 8.8 g/dL 03/30/2020 5:18 PM [facility] Alkaline Phosphatase 79 40 - 150 U/L 03/30/2020 5:18 PM [facility] ALT 357(H) 0 - 70 U/L 03/30/2020 5:18 PM [facility] AST 134(H) 0 - 45 U/L 03/30/2020 5:18 PM [facility] Blood specimen (specimen) 03/30/2020 3:36 PM ASSET MANAGEMENT LEAD 03/30/2020 4:40 PM ASSET MANAGEMENT LEAD Laverne Gross PA-C LAB - BLOOD O RDERABLES [facility] [address] [place] [place] [address], [facility] [phone] from Last 3 Months or Most Recently Relevant to Health Maintenance Care Teams Window Installation Subcontractor Relationship Specialty Start Date End Date Clinic, [facility] [address] [place] [address] PCP - General 03/30/20 [place] [address] [address] [place] [address] Assigned Neuroscience Provider 09/10/22
[2023-10-27 16:26] LABS: Slide Review Reflex No
[2023-10-27 16:32] LABS: Chloride* 106 mmol/L (96-114); Sodium* 141 mmol/L (135-149)
[2023-10-27 16:33] LABS: Potassium* 3.8 mmol/L (3.6-5.1)
[2023-10-27 16:35] LABS: Anion Gap 8 mEq/L (7-15); Carbon Dioxide* 27 mmol/L (20-32); Creatinine* 0.8 mg/dL (0.5-1.5); Est. Creatinine Clearance* 117.27; Estimated Glomerular Filt Rate 116 ml/min
[2023-10-27 16:36] LABS: Blood Urea Nitrogen* 17 mg/dL (5-24); Calcium* 9.5 mg/dL (8.4-10.6); Glucose* 104 mg/dL (60-115)
[2023-10-27 16:37] VITALS: BP 133/83; PULSE 66; RESP 18; O2SAT 99
[2023-10-27 16:38] VITALS: BP 133/83
[2023-10-27 17:31] LABS: Appearance Urine Clear (Clear); Bilirubin Urine Negative (Negative); Blood Urine Negative (Negative); Color Urine Yellow (Yellow); Glucose Urine Negative (Negative); Ketones Urine Negative (Negative); Leukocyte Esterase Urine Negative (Negative); Nitrite Urine Negative (Negative); Protein Urine Negative (Negative); Urobilinogen Urine 0.2 (0.2-1.0)
[2023-10-27 17:56] LABS: RBC Urine 0-2 (0-2); WBC Urine 0-2 (0-5)
== END 2023-10-27 18:28 | disposition home or self-care (01) ==
PROVIDERS: Emergency Provider Emergency Medicine Emergency Medical Services; PCP Family Medicine
DX: K52.9 Noninfective gastroenteritis and colitis, unspecified (principal)
CPT/HCPCS: 36415; 74177; 80048; 81001; 85025; 96374; 99284; J1885; Q9967

== ENCOUNTER 2024-09-06 13:15 | Outpatient (RCR) | payer OTHER, MEDICAID, SELFPAY | END 2025-01-04 23:59 | disposition home or self-care (01) | PROVIDERS: PCP Internal Medicine; Visit Provider Orthopaedic Surgery | DX: M95.5 Acquired deformity of pelvis (principal); M25.852 Other specified joint disorders, left hip; R35.0 Frequency of micturition; M54.16 Radiculopathy, lumbar region; Z51.89 Encounter for other specified aftercare | CPT/HCPCS: 97110; 97112; 97140; 97162 ==

== ENCOUNTER 2024-09-20 09:14 | Outpatient (CLI) | payer OTHER, MEDICAID, SELFPAY ==
--- NOTE | 2024-09-20 09:15 | CRLHL7_ITS ---
For Patients: As a result of the Century Cures Act, medical imaging exams and procedure reports are released immediately into your electronic medical record. You may view this report before your referring provider. If you have questions, please contact your health care provider. Indication: Left hip pain Comparison: 05/21/2024 x-rays Procedure : Informed consent was obtained. The site was marked. Time-out was performed. The skin of the left hip was cleansed with ChloraPrep. A sterile drape was placed. 8 cc of 1 percent lidocaine was administered for superficial anesthesia. Subsequently a 22 gauge spinal needle was introduced into the left hip joint under intermittent fluoroscopic guidance. Injection of 2 cc nonionic Omnipaque 240 contrast confirmed intra-articular location. Subsequently 11 cc of dilute gadolinium were injected. The needle was removed and hemostasis achieved with direct pressure. A dressing was placed. The patient tolerated the procedure well without immediate complication and was immediately sent to MRI for imaging. Total fluoroscopy time 0.37 minutes. Impression: Successful fluoroscopically guided left hip arthrogram for MRI. Dictated by Brenton Mendoza MD @ 09/20/2024 10:51:51 AM (Electronically Signed)
--- NOTE | 2024-09-20 10:15 | MR_ITS ---
[address] [address] Phone:?[phone] Fax:?[phone] Referring Physician Information: Keon Franklin M.D. [address] [facility] [address] Phone:?[phone] Fax:?[phone] Patient:Lobo Moses D.O.B:?1985 Sex:?Male Phone:?[phone] [facility] MRN:?[id number] Exam Date:?09/20/2024 EXAM: MR ARTHROGRAM EXAMINATION OF THE LEFT HIP CLINICAL INFORMATION: Left hip pain. Groin pain. No history of surgery to this area. Possible labral tear. TECHNICAL INFORMATION: The study was performed following the intraarticular injection of a dilute gadolinium solution. Axial, coronal and sagittal dual-echo imaging of the hip was performed in addition to coronal STIR and coronal T1-weighted images of both hips and the pelvis. T1 sagittal and coronal fat sat were also performed. There are no prior studies available for comparison. INTERPRETATION: Hip joint: The hip joint is distended with contrast material status post arthrogram injection. No discrete loose body is seen. No subchondral edema signal or cystic change. No discrete lesion identified to indicate AVN. No evidence of marrow edema pattern to indicate fracture or stress reaction of the femoral neck. There is no evidence for left hip joint chondral defect. There is no other evidence for hip joint chondromalacia. There is no evidence for contrast into extending into a tear involving the superior aspect of the labrum. As best seen on series 5 image 12, there is a rather short segment of linear tear involving the anterosuperior aspect of the labrum. There is no evidence for a paralabral cyst. There is abnormal decreased offset particularly laterally involving the femoral head/neck junction. No evidence for acetabular retroversion. The gluteus tendon insertions onto the greater trochanter are intact without tear or significant tendinopathy. No evidence of fluid signal abnormality to indicate trochanteric bursitis. Intact appearance of the iliopsoas muscle and tendon insertions. No evidence for iliopsoas bursitis. Bones and joints: No evidence for an occult fracture/stress reaction involving the sacrum. No appreciable changes of SI joint arthrosis. No evidence for a fracture. No abnormal marrow edema pattern to indicate occult stress reaction or stress fracture. Musculotendinous structures: No evidence of acute musculotendinous injury. Specifically, no evidence of acute muscle tear, hematoma or other edema pattern. Intrapelvic contents: No free fluid seen within the pelvis. No discrete intrapelvic mass is identified. Neurovascular structures: No discrete cyst, mass or other compression upon the portions visualized of sciatic or femoral nerves. CONCLUSION: 1. There is a short segment of linear tear identified involving the anterosuperior aspect of the labrum. There is no evidence for a paralabral cyst. 2. No evidence for a left hip joint chondral defect or other appreciable hip joint chondromalacia. 3. 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 4. Intact gluteus and iliopsoas tendon insertions about the hip. No evidence for bursitis about the hip. 5. No occult fracture/stress reaction. There is no evidence for AVN. KES Electronically signed on 09/20/2024 12:59:00 PM by Alfa Knox M.D.
== END 2024-09-20 09:15 | disposition home or self-care (01) ==
LOC: RAD 09:15
PROVIDERS: PCP Internal Medicine; Visit Provider Orthopaedic Surgery
DX: M25.552 Pain in left hip (principal); S73.192A Other sprain of left hip, initial encounter; M25.852 Other specified joint disorders, left hip
CPT/HCPCS: 27093; 73525; 73722; A9575